=== PATIENT | female | born 1950 | race Caucasian/White ===

== ENCOUNTER → 2022-01-28 | Outpatient (CLI) | payer MEDICARE, OTHER, SELFPAY ==
--- NOTE | 2022-01-28 10:16 | NEURO ---
NCS and/or EMG Patient Report Ordering Doctor: Lino Fan DATE OF SERVICE: 01/28/22 Kristi presents for electrodiagnostic testing of the upper limbs. She reports numbness, primarily in the fourth and fifth digits of the right hand. Electrodiagnostic findings: Right median motor nerve demonstrates normal distal latency, amplitude and mildly reduced conduction velocity. Right ulnar motor nerve demonstrates normal distal latency and amplitude without significant drop of conduction across the elbow. Normal median ulnar F-wave. Sensory responses are within normal limits. On needle EMG, all muscles tested in the right upper limb showed no evidence of denervation with normal motor unit action potentials. Electrodiagnostic impression: This is a normal electrodiagnostic study of the right upper limb. There is no electrodiagnostic evidence for carpal tunnel or cubital tunnel syndrome. There is no electrodiagnostic evidence for cervical radiculopathy.
== END | disposition home or self-care (01) ==
PROVIDERS: PCP Family Medicine; Referring Provider Family Medicine; Visit Provider Family Medicine
DX: G56.21 Lesion of ulnar nerve, right upper limb (principal)
CPT/HCPCS: 95886; 95910

== ENCOUNTER 2023-04-13 07:42 | Day surgery (SDC) | payer MEDICARE, OTHER, SELFPAY ==
[2023-04-13] VITALS (7 sets, daily range): BP systolic 111–154; BP diastolic 57–86; PULSE 71–87; RESP 16–18; TEMP 37–37.9; O2SAT 95–100; BMI 19.4
[2023-04-13] MEDS: Lactated Ringers 1,000 ML 15 ML IV (08:20)
--- NOTE | 2023-04-13 09:13 | PCM.HP.BLA ---
History and Physical Date of Admission: 04/13/23 Intake Vital Signs 03/29/2309:24 Weight: 126 lb BP 157/83 H Blood Pressure Location Rt brachial Position Sitting Respiration 17 Pulse 90 Pulse Source Monitor Temp 97.5 F L Temp Source Temporal Pulse Oximetry (%) 97 Oxygen Delivery Method room air Intake Visit Reasons: COLON POLYP Chief Complaint: h/o colon polyp Is patient in pain?: No Allergies No Known Allergies Allergy (Unverified 03/29/23 09:25) Medications ascorbic acid (vitamin C) 1,000 mg capsule 1 g PO Q6H 03/29/23 [History Confirmed 03/29/23] biotin 10,000 mcg capsule mcg PO 03/29/23 [History Confirmed 03/29/23] lactobacillus combination no.9 4 billion cell capsule (Adult 50 Plus Probiotic) 4,000 mmu cells PO DAILY 03/29/23 [History Confirmed 03/29/23] levothyroxine 75 mcg capsule 75 mcg PO DAILY 03/29/23 [History Confirmed 03/29/23] metoprolol tartrate 25 mg tablet 25 mg PO DAILY 03/29/23 [History Confirmed 03/29/23] [id number]-[id number] 8 mg-folic 400 mcg-K 50 mcg-lutein 300 mcg tablet (Centrum Silver Women) 1 tab PO DAILY 03/29/23 [History Confirmed 03/29/23] niacin 500 mg tablet 500 mg PO DAILY 03/29/23 [History Confirmed 03/29/23] zinc sulfate 50 mg zinc (220 mg) capsule (Orazinc) 50 mg PO DAILY 03/29/23 [History Confirmed 03/29/23] PFSH Surgical History (Updated 03/29/23 @ 09:22 by Ivania Maravilla) History of partial hysterectomy Family History (Updated 03/29/23 @ 09:23 by Ivania Maravilla) Father Colon cancerMother Kidney disease Diabetes Social History (Updated 03/29/23 @ 09:23 by Ivania Maravilla) Smoking Status: Never smoker alcohol intake: current substance use type: does not use additional social history: daily use ibuprofen HPI HPI HPI: Patient is a 72-year-old female here for colonoscopy. Her last colonoscopy was in 2019. Patient had multiple polyps identified and was recommended to have a repeat in 3 years. She also has a family history of colon cancer in her father. She denies abdominal pain or blood in her stool. ROS General General: No weight change, appetite, fatigue, colon cancer, breast cancer or weakness HEENT HEENT: No difficulty swallowing, eye injury, eye surgery, swollen glands or hoarseness Endo Endocrine: Yes thyroid disease; No diabetes mellitus, thyroid cancer, Hair loss, heat intolerance or cold intolerance Skin Skin: No rash or changing moles Musc Musculoskeletal: Yes arthritis; No back problems, rheumatoid arthritis, gout or joint pain Cardio Cardiovascular: Yes high blood pressure; No murmur, pacemaker, heart disease, atrial fibrillation, heart attack, heart stent, palpitations, shortness of breat with exertion or chest pain Psych Psychiatric: No depression, anxiety or hearing voices Resp Respiratory: No shortness of breath, No sleep apnea, No cough, No COPD, No asthma, No emphysema and No wheezing Gastro Gastrointestinal: No abdominal pain, No nausea or vomiting, No diarrhea, No constipation, No blood in stool, No acid reflux, Yes hemorrhoids, No ulcers, No gallbladder problem and No black,tarry stools Herman Hematologic: No blood thinners, No blood disorders, No bleeding, No anemia and No blood clots Neuro Neurologic: No system reviewed and no additional complaints, except as documented, No as per HPI, No abnormal gait, No abnormal hearing, No abnormal movements, No abnormal speech, No behavioral changes, No burning sensations, No confusion, No convulsions, No disequilibrium, No dizziness, No localized weakness, No frequent falls, No headache(s), No lack of coordination, No loss of vision, No memory loss, No numbness, No other visual disturbances, No radicular pain, No restless legs, No sensory deficit, No syncope, No tingling, No tremor(s), No weakness and No other Exam Const General: cooperative Orientation: alert and oriented x3 HENMT Head: normal to inspection Neck Neck: normal visual inspection and full ROM Chest Chest palpation & inspection: normal inspection of the chest Resp Effort & Inspection: normal respiratory effort Auscultation: clear to auscultation bilaterally Cardio Rate: regular rate Rhythm: regular rhythm GI Inspection: non-distended Palpation: soft and nontender Skin General: no rashes or lesions noted Neuro General: patient alert and patient oriented x3 Extrem General: full ROM Psych Appearance: grossly normal Mental Status: mental status grossly normal Assessment and Plan Assessment and Plan (1) History of colon polyps: Status: Acute Plan: Patient has a history of colon polyps and requires colonoscopy for surveillance. I explained endoscopy in detail to the patient. I explained the risks including but not limited to stroke or heart attack with anesthesia, perforation of the GI tract, bleeding, infection. I explained that any of these could necessitate further emergency surgery. The patient understands and all questions were answered sufficiently. The patient wishes to proceed with procedure. Nikolas Jiang MD Pager: [facility] [address] [place] [address], [address] [place] [address] Office: I have examined the patient and the H&P has been reviewed. There are no clinical changes since date of exam.
--- NOTE | 2023-04-13 09:48 | OP.COLON_ITS ---
Patient Name: Kristi Hurd Procedure Date: 04/13/2023 9:16 AM Date of : 1950 Age: 72 Procedure: Colonoscopy Indications: High risk colon cancer surveillance: Personal history of colonic polyps Providers: Nikolas Jiang MD Referring MD: Lino Fan Medicines: Monitored Anesthesia Care Patient Profile: This is a 72 year old female. Refer to note in patient chart for documentation of history and physical. Last Colonoscopy: 5 years ago. Complications: No immediate complications. Procedure: Pre-Anesthesia Assessment: - Prior to the procedure, a History and Physical was performed, and patient medications and allergies were reviewed. The patient's tolerance of previous anesthesia was also reviewed. The risks and benefits of the procedure and the sedation options and risks were discussed with the patient. All questions were answered, and informed consent was obtained. Prior Anticoagulants: The patient has taken no anticoagulant or antiplatelet agents. After reviewing the risks and benefits, the patient was deemed in satisfactory condition to undergo the procedure. After I obtained informed consent, the scope was passed under direct vision. Throughout the procedure, the patient's blood pressure, pulse, and oxygen saturations were monitored continuously. The Colonoscope was introduced through the anus and advanced to the cecum, identified by appendiceal orifice and ileocecal valve. The colonoscopy was performed without difficulty. The patient tolerated the procedure well. The quality of the bowel preparation was good. The ileocecal valve, appendiceal orifice, and rectum were photographed. Scope In: 9:27:28 AM Scope Withdrawal Time 0 hours 4 minutes 30 seconds Scope Out: 9:38:02 AM Total Procedure Duration Time 0 hours 10 minutes 34 seconds Findings: The entire examined colon appeared normal on direct and retroflexion views. Impression: - The entire examined colon is normal on direct and retroflexion views. - No specimens collected. Recommendation: - Discharge patient to home. - Resume previous diet. - Continue present medications. - Repeat colonoscopy is not recommended due to current age (66 years or older) for screening purposes. Procedure Code(s): --- Professional --- 46623, Colonoscopy, flexible; diagnostic, including collection of specimen(s) by brushing or washing, when performed (separate procedure) Diagnosis Code(s): --- Professional --- Z86.010, Personal history of colonic polyps CPT copyright 2021 [employer]. All rights reserved. The codes documented in this report are preliminary and upon review nurse review may be revised to meet current compliance requirements. Nikolas Jiang MD 04/13/2023 9:47:23 AM This report has been signed electronically. Number of Addenda: 0 Note Initiated On: 04/13/2023 9:16 AM
--- NOTE | 2023-04-13 09:48 | OP.CCLET_ITS ---
04/13/2023 Lino Fan Re : Colonoscopy procedure for Kristi Rosado Meng This procedure was performed on Thursday, April 13, 2023. My impressions and recommendations are as follows: Impressions : - The entire examined colon is normal on direct and retroflexion views. - No specimens collected. Recommendations : - Discharge patient to home. - Resume previous diet. - Continue present medications. - Repeat colonoscopy is not recommended due to current age (66 years or older) for screening purposes. My findings are described in the full procedure note, which is enclosed. If I can be of further assistance, please feel free to contact me at Doctor phone number(s): , Work: . Sincerely, Nikolas Jiang MD 04/13/2023 9:47:23 AM This report has been signed electronically.
== END 2023-04-13 10:20 | disposition home or self-care (01) ==
LOC: EN 07:43 → AC 07:44
PROVIDERS: PCP Family Medicine; Referring Provider Family Medicine; Visit Provider Surgery
PROC: 0DJD8ZZ Inspection of Lower Intestinal Tract, Via Natural or Artificial Opening Endoscopic (ICD-10-PCS; CPT 45378; principal; 2023-04-13 08:55)
DX: Z12.11 Encounter for screening for malignant neoplasm of colon (principal); Z80.0 Family history of malignant neoplasm of digestive organs; Z86.010 Personal history of colon polyps; I10 Essential (primary) hypertension; Z79.899 Other long term (current) drug therapy; Z79.890 Hormone replacement therapy; E07.9 Disorder of thyroid, unspecified
CPT/HCPCS: G0105; J7120; J2405